=== PATIENT | female | born 1930 ===

== ENCOUNTER 2017-08-28 13:08 | Emergency (ER) | payer OTHER ==
[~2017-08-28] VITALS: Ht 160 cm; Wt 72.6 kg
[2017-08-28] MEDS ORDERED: ARICEPT10 MG (13:56)
[2017-08-28] MEDS ORDERED: MICROZIDE12.5 MG (13:57)
[2017-08-28] MEDS ORDERED: RISPERDAL1 MG (13:57)
[2017-08-28] MEDS ORDERED: NAMENDA XR28 MG (13:58)
[2017-08-28] MEDS ORDERED: LIPITOR40 MG (13:58)
[2017-08-28] MEDS ORDERED: RISPERDAL0.25 MG (13:58)
[2017-08-28] MEDS ORDERED: ENULOSE10 GM/15 M (13:58)
[2017-08-28] MEDS ORDERED: TRILIPIX135 MG (13:59)
== END 2017-08-28 16:07 | disposition home or self-care (01) ==
LOC: ER 13:08
DX: K94.23 Gastrostomy malfunction (principal)

== ENCOUNTER 2017-08-29 10:47 | Inpatient (IN) | payer OTHER ==
[~2017-08-29] VITALS: Ht 167.6 cm; Wt 70.8 kg
[~2017-08-29 10:47] MED LIST: ARICEPT10 MG; ENULOSE10 GM/15 M; LIPITOR40 MG; MICROZIDE12.5 MG; NAMENDA XR28 MG; RISPERDAL0.25 MG; RISPERDAL1 MG; TRILIPIX135 MG
[2017-09-03] MEDS ORDERED: ARICEPT10 MG PO (14:03)
[2017-09-03] MEDS ORDERED: NAMENDA10 MG PO (14:03)
[2017-09-03] MEDS ORDERED: RISPERDAL1 MG PO (14:03)
[2017-09-03] MEDS ORDERED: LIPITOR40 MG PO (14:03)
[2017-09-03] MEDS ORDERED: HYDROCHLOROTH12.5 M1 PO (14:03)
== END 2017-09-03 19:17 | disposition home or self-care (01) | DRG 394 ==
LOC: ER 10:47 → SEC-K 17:45 → MEDJ 17:45
PROC: 0DH63UZ Insertion of Feeding Device into Stomach, Percutaneous Approach (ICD-10-PCS; principal; 2017-09-01)
DX: K94.22 Gastrostomy infection (principal); L03.311 Cellulitis of abdominal wall; E87.0 Hyperosmolality and hypernatremia; E46 Unspecified protein-calorie malnutrition; Y83.3 Surgical operation with formation of external stoma as the cause of abnormal reaction of the patient, or of later complication, without mention of misadventure at the time of the procedure; Y92.098 Other place in other non-institutional residence as the place of occurrence of the external cause; G30.8 Other Alzheimer's disease; F02.80 Dementia in other diseases classified elsewhere, unspecified severity, without behavioral disturbance, psychotic disturbance, mood disturbance, and anxiety; Z74.01 Bed confinement status; R13.19 Other dysphagia; E86.0 Dehydration; T73.0XXA Starvation, initial encounter; B96.1 Klebsiella pneumoniae [K. pneumoniae] as the cause of diseases classified elsewhere; B37.2 Candidiasis of skin and nail

== ENCOUNTER 2017-10-10 15:32 | Inpatient (IN) | payer OTHER ==
[~2017-10-10] VITALS: Ht 157.5 cm; Wt 66.7 kg
[~2017-10-10 15:32] MED LIST changes: +ARICEPT10 MG PO; +HYDROCHLOROTH12.5 M1 PO; +LIPITOR40 MG PO; +NAMENDA10 MG PO; +RISPERDAL1 MG PO
[2017-10-10] MEDS ORDERED: SE-TAN PLUS CA1 EACH (16:15)
[2017-10-10] MEDS ORDERED: PLAQUENIL (16:16)
[2017-10-10] MEDS ORDERED: MICROZIDE12.5 MG (16:16)
[2017-10-10] MEDS ORDERED: LYSIPLEX PLUS178 ML (16:16)
[2017-10-10] MEDS ORDERED: [UNRECOGNIZED DRUG - OTHER] (16:17)
[2017-10-10] MEDS ORDERED: ZITHROMAX200 MG (16:17)
[2017-10-17] MEDS ORDERED: MERREM1 GM IV (15:01)
== END 2017-10-18 13:49 | disposition other institution (70) | DRG 194 ==
LOC: ER 15:32 → SEC-K 10-11 12:17 → MEDJ 10-11 12:17
PROC: 30233N1 Transfusion of Nonautologous Red Blood Cells into Peripheral Vein, Percutaneous Approach (ICD-10-PCS; principal; 2017-10-11)
PROC: 8E0ZXY6 Isolation (ICD-10-PCS; 2017-10-13)
PROC: BW24ZZZ Computerized Tomography (CT Scan) of Chest and Abdomen (ICD-10-PCS; 2017-10-16)
PROC: 3E0F7GC Introduction of Other Therapeutic Substance into Respiratory Tract, Via Natural or Artificial Opening (ICD-10-PCS; 2017-10-16)
DX: J18.9 Pneumonia, unspecified organism (principal); N39.0 Urinary tract infection, site not specified; B37.89 Other sites of candidiasis; J90 Pleural effusion, not elsewhere classified; K94.22 Gastrostomy infection; L02.211 Cutaneous abscess of abdominal wall; D64.89 Other specified anemias; I10 Essential (primary) hypertension; B96.1 Klebsiella pneumoniae [K. pneumoniae] as the cause of diseases classified elsewhere; B96.5 Pseudomonas (aeruginosa) (mallei) (pseudomallei) as the cause of diseases classified elsewhere; B96.4 Proteus (mirabilis) (morganii) as the cause of diseases classified elsewhere; G30.8 Other Alzheimer's disease; F02.80 Dementia in other diseases classified elsewhere, unspecified severity, without behavioral disturbance, psychotic disturbance, mood disturbance, and anxiety; Z74.01 Bed confinement status; Z16.12 Extended spectrum beta lactamase (ESBL) resistance; Y83.3 Surgical operation with formation of external stoma as the cause of abnormal reaction of the patient, or of later complication, without mention of misadventure at the time of the procedure; Y92.098 Other place in other non-institutional residence as the place of occurrence of the external cause

== ENCOUNTER 2017-12-28 10:02 | Emergency (ER) | payer OTHER ==
[~2017-12-28] VITALS: Ht 167.6 cm; Wt 79.4 kg
[~2017-12-28 10:02] MED LIST changes: +LYSIPLEX PLUS178 ML; +MERREM1 GM IV; +PLAQUENIL; +SE-TAN PLUS CA1 EACH; +ZITHROMAX200 MG; +[UNRECOGNIZED DRUG - OTHER]
[2017-12-28] MEDS ORDERED: RISPERIDONE M-TA1 MG (10:39)
== END 2017-12-28 23:59 | disposition home or self-care (01) ==
LOC: ER 10:02
DX: J22 Unspecified acute lower respiratory infection (principal); J06.9 Acute upper respiratory infection, unspecified; J11.1 Influenza due to unidentified influenza virus with other respiratory manifestations

== ENCOUNTER 2018-09-10 10:07 | Inpatient (IN) | payer OTHER ==
[~2018-09-10] VITALS: Ht 162.6 cm; Wt 90.7 kg
[~2018-09-10 10:07] MED LIST changes: +RISPERIDONE M-TA1 MG
[2018-09-10] MEDS ORDERED: ARICEPT5 MG PO (10:34)
[2018-09-10] MEDS ORDERED: FENOFIBRATE160 MG PO (10:36)
[2018-09-10] MEDS ORDERED: ATORVASTATIN CA10 MG PO (10:36)
[2018-09-10] MEDS ORDERED: NAMENDA10 MG PO (10:37)
[2018-09-10] MEDS ORDERED: SE-TAN PLUS CA1 EACH PO (10:38)
--- NOTE | 2018-09-10 10:40 | NUR ---
SE RECIBE PACIENTE EN AMBULANCIA ALERTA, NO RESPONDE A COMANDO DE VOZ, RESPONDE A ESTIMULOS. CON HISTORIAL DE ALZHEIMERS ACOMPANADA DE FAMILIARES. NO REFIERE DOLOR AL MOMENTO.SE MAYE VITALES RESULTAN ESTABLES. SE COLOCA EN CAMA EN ESPERA DE EVALUACION DE MD.
== END 2018-09-30 17:38 | disposition home or self-care (01) | DRG 640 ==
LOC: ER 10:07 → MEDJ 17:53 → SEC-K 17:53 → MEDJ 18:25
PROVIDERS: ADMIT Internal Medicine
PROC: 30233N1 Transfusion of Nonautologous Red Blood Cells into Peripheral Vein, Percutaneous Approach (ICD-10-PCS; 2018-09-10)
PROC: 3E0F7GC Introduction of Other Therapeutic Substance into Respiratory Tract, Via Natural or Artificial Opening (ICD-10-PCS; 2018-09-17)
PROC: 4A033R1 Measurement of Arterial Saturation, Peripheral, Percutaneous Approach (ICD-10-PCS; 2018-09-17)
PROC: 0T9B70Z Drainage of Bladder with Drainage Device, Via Natural or Artificial Opening (ICD-10-PCS; 2018-09-17)
PROC: 4A12X4Z Monitoring of Cardiac Electrical Activity, External Approach (ICD-10-PCS; 2018-09-17)
PROC: BW24ZZZ Computerized Tomography (CT Scan) of Chest and Abdomen (ICD-10-PCS; principal; 2018-09-25)
DX: E87.0 Hyperosmolality and hypernatremia (principal); J69.0 Pneumonitis due to inhalation of food and vomit; B37.1 Pulmonary candidiasis; J80 Acute respiratory distress syndrome; N17.9 Acute kidney failure, unspecified; F05 Delirium due to known physiological condition; N39.0 Urinary tract infection, site not specified; J98.11 Atelectasis; J90 Pleural effusion, not elsewhere classified; D63.8 Anemia in other chronic diseases classified elsewhere; E78.2 Mixed hyperlipidemia; G30.0 Alzheimer's disease with early onset; F02.80 Dementia in other diseases classified elsewhere, unspecified severity, without behavioral disturbance, psychotic disturbance, mood disturbance, and anxiety; Z74.01 Bed confinement status; Z93.1 Gastrostomy status; D50.8 Other iron deficiency anemias; E86.0 Dehydration; E87.8 Other disorders of electrolyte and fluid balance, not elsewhere classified; B96.4 Proteus (mirabilis) (morganii) as the cause of diseases classified elsewhere; Z66 Do not resuscitate; Z88.6 Allergy status to analgesic agent; E87.6 Hypokalemia; Z90.12 Acquired absence of left breast and nipple

== ENCOUNTER 2019-01-13 05:20 | Inpatient (IN) | payer OTHER ==
[~2019-01-13] VITALS: Ht 157.5 cm; Wt 68.0 kg
[~2019-01-13 05:20] MED LIST changes: +ARICEPT5 MG PO; +ATORVASTATIN CA10 MG PO; +FENOFIBRATE160 MG PO; +SE-TAN PLUS CA1 EACH PO
[2019-01-13] MEDS ORDERED: SE-TAN PLUS CA1 EACH (05:30)
== END 2019-01-25 11:41 | disposition home health service (06) | DRG 987 ==
LOC: ER 05:20 → MEDJ 11:02 → MEDI 11:02
PROVIDERS: ADMIT Internal Medicine
PROC: 0RBW0ZZ Excision of Right Finger Phalangeal Joint, Open Approach (ICD-10-PCS; principal; 2019-01-13)
PROC: 30233N1 Transfusion of Nonautologous Red Blood Cells into Peripheral Vein, Percutaneous Approach (ICD-10-PCS; 2019-01-14)
PROC: CP1Z1ZZ Planar Nuclear Medicine Imaging of Musculoskeletal System, All using Technetium 99m (Tc-99m) (ICD-10-PCS; 2019-01-14)
PROC: 8E0ZXY6 Isolation (ICD-10-PCS; 2019-01-15)
PROC: CW1NLZZ Planar Nuclear Medicine Imaging of Whole Body using Gallium 67 (Ga-67) (ICD-10-PCS; 2019-01-18)
DX: L03.113 Cellulitis of right upper limb (principal); J69.0 Pneumonitis due to inhalation of food and vomit; J91.8 Pleural effusion in other conditions classified elsewhere; N17.8 Other acute kidney failure; N39.0 Urinary tract infection, site not specified; F02.81 Dementia in other diseases classified elsewhere, unspecified severity, with behavioral disturbance; E78.49 Other hyperlipidemia; G30.8 Other Alzheimer's disease; D64.89 Other specified anemias; B95.62 Methicillin resistant Staphylococcus aureus infection as the cause of diseases classified elsewhere; B96.4 Proteus (mirabilis) (morganii) as the cause of diseases classified elsewhere; B95.1 Streptococcus, group B, as the cause of diseases classified elsewhere; B37.2 Candidiasis of skin and nail

== ENCOUNTER 2019-05-22 23:14 | Emergency (ER) | payer OTHER ==
[~2019-05-22] VITALS: Ht 160 cm; Wt 54.4 kg
== END 2019-05-23 09:53 | disposition home or self-care (01) ==
LOC: ER 23:14
DX: R06.02 Shortness of breath (principal); G30.9 Alzheimer's disease, unspecified

== ENCOUNTER 2019-08-20 05:14 | Inpatient (IN) | payer OTHER ==
[~2019-08-20] VITALS: Ht 160 cm; Wt 65.8 kg
[2019-08-20] MEDS ORDERED: ATORVASTATIN CA40 MG PO (05:52)
[2019-08-20] MEDS ORDERED: HYDROCHLOROTH12.5 MG PO (05:54)
--- NOTE | 2019-08-20 05:58 | NUR ---
PTE. LLEGA ACOMPANADA DE FAMILIAR, EN AMBULANCIA. REFIEREN QUE PRESENTA DIFICULTAD RESPIRATORIA, PTE VIENE DE [facility]. PRESENTA AREA DE ULCERA EN MANO DERECHA, KEVIN ANQUILOSADAS, PRESENTA FETIDES, PTE. TIENE PEG ,PARA MEDICAMENTOS Y ALIMENTOS. ALERGIA A LOS CRUSTACEOS.SE UBICA A PTE EN CAMA K8, SE CONECTA A MONITOS, Y OXIMETRIA Y SE LE PRESENTA A DR. WISEMAN.PTE. ALERTA, AUNQUE POR SEO CONDICION DE ALZAHEMER NO CONTESTA NI RESPONDE.
--- NOTE | 2019-08-20 06:14 | NUR ---
EVALUADA POR MD EN TURNO QUIEN COLOCA ORDENES MEDICAS. SE ORIENTA FAMILIAR EL CUAL REFIERE COMPRNDER. SE COLECTAN MUESTRAS DE LABORATORIOS NIMA ORDEN MEDICA BAJO MEDIDAS ASEPTICAS. SE ROTULAN Y ENVIAN PARA ANALISIS. SE NOTIFICAN ABGS, TERAPIAS RESPIRATORIAS A PERSONAL EN TURNO . SE NOTIFICA XRAYS A PERSONAL EN TURNO . SE INSERTA SONDA URINARIA BAJO MEDIDAS ASEPTIVAS Y ESTERILES. SE OBSERVA ORINA AMARILLO ADRIAN. REALIZA EKG QUIEN LO PRESENTA A . PACIENTE TOLERA PROCEDIMIENTOS. PACIENTE LETARJICA.
--- NOTE | 2019-08-20 06:20 | NUR ---
SE REALIZA EKG, Y SE MUEATRA A DR. WISEMAN
--- NOTE | 2019-08-20 07:14 | NUR ---
SE RECIBE PTE LA CUAL SE ENCUENTRA EN CAMA CON BARANDAS ELEVADAS, LA MISMA SE ENCUENTRA CONECTADA A MONITOR CARDIACO Y OXIMETRIA DE PULSO. PTE PRESENTA AREA DE VENOPUNCION PATENTE, PTE PRESENTA PEG SE MANTIENE PTE BAJO OBSERVACION.
--- NOTE | 2019-08-20 08:33 | NUR ---
PACIENTE ALERTA , ELCUAL SE OBSERVA CON ROCOS , SE LE REALIZA SUCCION OROTRAQUEAL CON MEG MEDIDAS ASEPTICAS , OBSTENIENDO SECRECIONES ROGERS ESPESA . S EMANTIENEEN OBSERVCAION .
--- NOTE | 2019-08-20 10:24 | NUR ---
EVALUA A PACIENTE Y ORDENA COLOCAR NASAL AIRWAY, SE NOTIFICA A PERSONAL DE TERAPIA RESPIRATORIA ORIENTA A PACIENTE Y EJECUTA ORDEN MEDICA EL CUAL SE COLOCA EN NARE LT, PACIENTE TOLERA PROCEDIMIENTO
--- NOTE | 2019-08-20 11:00 | NUR ---
SE REALIZA SUCCION A PACIENTE VIA NASAL SE OBSERVA SECRECIONES CLEAR. FAMILIAR ORIENTADO SOBRE PROCESO VERBALIZA ENTENDER
== END 2019-10-04 09:27 | disposition expired | DRG 177 ==
LOC: ER 05:14 → MEDJ 12:53 → SURH 08-26 19:17
PROVIDERS: ADMIT Internal Medicine
PROC: B245ZZZ Ultrasonography of Left Heart (ICD-10-PCS; 2019-08-20)
PROC: 3E0F7GC Introduction of Other Therapeutic Substance into Respiratory Tract, Via Natural or Artificial Opening (ICD-10-PCS; 2019-08-24)
PROC: 4A033R1 Measurement of Arterial Saturation, Peripheral, Percutaneous Approach (ICD-10-PCS; 2019-08-24)
PROC: 8E0ZXY6 Isolation (ICD-10-PCS; 2019-08-26)
PROC: 30233N1 Transfusion of Nonautologous Red Blood Cells into Peripheral Vein, Percutaneous Approach (ICD-10-PCS; 2019-09-05)
PROC: B54NZZZ Ultrasonography of Left Upper Extremity Veins (ICD-10-PCS; 2019-09-06)
PROC: BB24ZZZ Computerized Tomography (CT Scan) of Bilateral Lungs (ICD-10-PCS; 2019-09-09)
PROC: 0W993ZX Drainage of Right Pleural Cavity, Percutaneous Approach, Diagnostic (ICD-10-PCS; principal; 2019-09-22)
PROC: 3E0436Z Introduction of Nutritional Substance into Central Vein, Percutaneous Approach (ICD-10-PCS; 2019-09-24)
DX: J69.0 Pneumonitis due to inhalation of food and vomit (principal); A41.9 Sepsis, unspecified organism; N17.9 Acute kidney failure, unspecified; E87.1 Hypo-osmolality and hyponatremia; I48.20 Chronic atrial fibrillation, unspecified; E87.0 Hyperosmolality and hypernatremia; J90 Pleural effusion, not elsewhere classified; J15.1 Pneumonia due to Pseudomonas; E78.5 Hyperlipidemia, unspecified; G30.9 Alzheimer's disease, unspecified; F02.80 Dementia in other diseases classified elsewhere, unspecified severity, without behavioral disturbance, psychotic disturbance, mood disturbance, and anxiety; Z74.01 Bed confinement status; D64.9 Anemia, unspecified; D69.49 Other primary thrombocytopenia; I11.0 Hypertensive heart disease with heart failure; I50.9 Heart failure, unspecified